=== PATIENT | male | born 1960 | race Caucasian/White ===

== ENCOUNTER 2019-02-25 02:41 | Emergency (ER) ==
[2019-02-25 02:56] VITALS: BP 114/74; TEMP 97; BMI 28.3
[2019-02-25] MEDS ORDERED: BENADRYL IVP STA (02:56)
[2019-02-25] MEDS ORDERED: SOLU-MEDROL 125 MG IVP STA (02:56)
[2019-02-25] MEDS ORDERED: PEPCID IVP STA (02:57)
[2019-02-25] MEDS ORDERED: EPINEPHRINE 1 MG/ML AMP IM STA (02:57)
--- NOTE | 2019-02-25 03:00 | ED.PDOC ---
General ED Provider: Dr. EVELIA FARIA-ER Chief Complaint: Allergic Reaction Stated Complaint: im itchy Time Seen by Physician: 02:50 Mode of Arrival: Walk-In Information Source: Patient Exam Limitations: No limitations Primary Care Provider: JORGE GRIFFIN Nursing and Triage Documentation Reviewed and Agree: Yes Does patient meet sepsis criteria?: No System Inflammatory Response Syndrome: Not Applicable Sepsis Protocol: For patient's 13 years and over: Temp is 96.8 and below OR 101 and greater Pulse >90 BPM Resp >20/minute Acutely Altered Mental Status Are patient's symptoms suggestive of a new infection, such as: -Pneumonia -Skin, Soft Tissue -Endocarditis -UTI -Bone, Joint Infection -Implantable Device -Acute Abdominal Infection -Wound Infection -Meningitis -Blood Stream Catheter Infection -Unknown Skin Complaint Exam - Skin Rash/Itching Complaint/Exam Onset/Duration: 30min Symptoms Are: Still present Initial Severity: Mild Current Severity: Moderate Location: whole body Potential Exposures: Reports: Other Aggravating: Reports: None Alleviating: Reports: None Associated Signs and Symptoms: Denies: Difficulty breathing, Fever, Chills Skin Findings: Present: Urticaria Differential Diagnoses: Allergic Reaction Review of Systems - Review Of Systems Constitutional: Reports: No symptoms Eyes: Reports: No symptoms Ears, Nose, Mouth, Throat: Reports: No symptoms Respiratory: Reports: No symptoms Cardiac: Reports: No symptoms GI: Reports: No symptoms : Reports: No symptoms Musculoskeletal: Reports: No symptoms Skin: Reports: Rash Neurological: Reports: No symptoms Endocrine: Reports: No symptoms Hematologic/Lymphatic: Reports: No symptoms All Other Systems: Reviewed and Negative Past Medical History - Past Medical History Previously Healthy: Yes Endocrine: Reports: Unknown Cardiovascular: Reports: Unknown Respiratory: Reports: Unknown Hematological: Reports: Unknown Gastrointestinal: Reports: Unknown Genitourinary: Reports: Unknown Neuro/Psych: Reports: Unknown Musculoskeletal: Reports: Unknown Cancer: Reports: Unknown - Surgical History General Surgical History: Reports: Unknown - Family History Family History: Reports: Unknown - Social History Smoking Status: Former smoker Hx Substance Use: No Alcohol Screening: Occasionally - Immunizations Tetanus Shot up to Date: Yes Physical Exam - Physical Exam Appearance: Well-appearing, No pain distress, Well-nourished Eyes: TOM, EOMI, Conjunctiva clear ENT: Ears normal Neck: Supple Respiratory: Airway patent Cardiovascular: RRR, Pulses normal, No rub, No murmur GI/: Soft Musculoskeletal: Normal strength, ROM intact, No edema, No calf tenderness Skin: Warm, Dry, Normal color Neurological: Sensation intact, Motor intact, Reflexes intact, Cranial nerves intact, Alert, Oriented Psychiatric: Affect appropriate, Mood appropriate Re-Evaluation - Re-Evaluation Time of Re-Evaluation: 03:13 Status: Improved Vital Signs Stable: Yes Pain Level: 0 Appearance: NAD Lungs: Clear Skin: Warm and Dry Neuro: Alert and Oriented X3 CV: RRR Critical Care Note - Critical Care Note Total Time (mins): 30 Course - Course Orders, Labs, Meds: Orders Category Date Time Status Diphenhydramine Inj [Benadryl] MEDS 02/25/19 02:56 Discontinued 50 mg IVP ONCE STA Epinephrine Amp [Epinephrine 1 mg/ml Amp] MEDS 02/25/19 02:57 Discontinued 0.2 mg IM ONCE STA Famotidine Inj [Pepcid] MEDS 02/25/19 02:57 Discontinued 40 mg IVP ONCE STA Methylprednisolone Sod Succ/Pf [Solu-Medrol 125 mg] MEDS 02/25/19 02:56 Discontinued 125 mg IVP ONCE STA Medications Discontinued Medications Generic Name Dose Route Start Last Admin Trade Name Freq PRN Reason Stop Dose Admin Diphenhydramine HCl 50 mg 02/25/19 02:56 Benadryl IVP 02/25/19 02:57 ONCE STA Epinephrine HCl 0.2 mg 02/25/19 02:57 Epinephrine 1 Mg/Ml Amp IM 02/25/19 02:58 ONCE STA Famotidine 40 mg 02/25/19 02:57 Pepcid IVP 02/25/19 02:58 ONCE STA Methylprednisolone Sodium Succinate 125 mg 02/25/19 02:56 Solu-Medrol 125 Mg IVP 02/25/19 02:57 ONCE STA Vital Signs: Temp Pulse Resp BP Pulse Ox 02/25/19 02:42 97 F L 127 H 22 114/74 94 L Departure - Departure Time of Disposition: 03:14 Disposition: HOME SELF-CARE Discharge Problem: Allergic state Instructions: Antihistamine (By mouth) Condition: Good Pt referred to PMD for follow-up: Yes IPMP verified?: No Additional Instructions: medrol dose pack, zantac 150mg bid #14---zyrtec 10mg #7---f/u with pcp Allergies/Adverse Reactions: Allergies No Known Allergies Allergy (Unverified 02/25/19 02:49) Disposition Discussed With: Patient
[2019-02-25] MEDS ORDERED: PEPCID ONE (03:22)
== END 2019-02-25 03:40 | disposition home or self-care (01) ==
LOC: ED 02:41
DX: T78.40XA Allergy, unspecified, initial encounter (principal)
CPT/HCPCS: 96372; 96374; 96375; 99283